=== PATIENT | female | born 1935 | race Caucasian/White ===

== ENCOUNTER 2017-04-21 17:26 | Observation (INO) | payer MEDICARE, BC ==
--- NOTE | ~2017-04-21 | HP ---
History And Physical [place] [address] [facility] [place] [place]. [address] NAME: MAREK YEBOAH : 31 STATUS : ADM Janes PAT#: [id number] AGE: 81 ADM/REG DATE : 04/21/17 MR#: [id number] REPORT SERV DATE: 04/22/17 DICTATED BY: MEMO NORWOOD DATE: 04/22/17 REPORT STATUS : Draft TRANSCRIBED BY: MODAbdulkadir DATE: 04/22/17 DATE OF ADMISSION: 04/21/2017 CHIEF COMPLAINT: Chest pain with typical and atypical features. HISTORY OF PRESENT ILLNESS: A very pleasant 81-year-old white female with no known history of CAD, states that on 04/21/2017, around 0730 hours, she became dizzy after gardening. She states that she came in and worked on her computer for a period of time, seemingly became more dizzy with the development of some chest pain. She also became nauseous and had some episodes of vomiting. She describes the chest pain as substernal in nature, as if weight was on her chest. She also had discomfort from shoulder to shoulder, described as a "needly sensation". She also feels that her left arm went numb. She describes associated shortness of breath, nausea, diaphoresis, dizziness, and belching. She radioed her to come in and upsets when she saw him, she states that his "lips" were blue, which upset her, she became emotional which seemed to add to her symptoms. At its most intense, she rated the chest pain as 5/10. At the time of interview in the [facility], she is pain-free. She states the episode lasted hours in duration. Of note, she and her had pancakes, her parents brought a banana for breakfast. The patient confirms a personal history of TIA x3. Denies history of AL, DVT, or pulmonary embolus. The patient denies any recent fever or chills. Describes occasional palpitations. Does not consume any caffeinated beverages. No syncopal episodes. Denies PND or orthopnea. PAST MEDICAL HISTORY: 1. Hypertension. 2. Dyslipidemia. 3. AODM. 4. GERD. 5. History of TIA x3 with right-sided visual disturbance. 6. Positive family history for early CAD. PAST SURGICAL HISTORY: 1. Hysterectomy. 2. Salivary gland removed. 3. Parotid gland. 4. Bilateral total knee surgery. 5. Right shoulder surgery. 6. Lumbar surgery x3. 7. Bilateral cataract repair. SOCIAL HISTORY: She is with four children. Previously employed in an office. She is active around her property including gardening. Denies tobacco, alcohol, or illicits, although she was exposed to secondhand smoke as a child. FAMILY HISTORY: Mother with a stroke in her 50s and a history of "angina", at 86. Sister with a heart attack and stroke, in her 70s. History And Physical [address] [address] [facility] [place]. [address] NAME: MAREK YEBOAH : 31 STATUS : ADM Janes PAT#: [id number] AGE: 81 ADM/REG DATE : 04/21/17 MR#: [id number] REPORT SERV DATE: 04/22/17 DICTATED BY: MEMO NORWOOD DATE: 04/22/17 REPORT STATUS : Draft TRANSCRIBED BY: AB DATE: 04/22/17 REVIEW OF SYSTEMS: A 14-point review of systems performed, significant for HPI. No other contributory diagnoses identified. ALLERGIES: TO SULFA, NAUSEA, VOMITING. CODEINE, NAUSEA, VOMITING. HOME MEDICATIONS: Ventolin inhaler p.r.n., aspirin 81 mg daily, Flonase spray twice daily, Neurontin 300 mg daily and 600 at bedtime, losartan 50 mg at noon, metformin 500 mg three times daily, pantoprazole 40 mg nightly, pravastatin 80 mg nightly, ranitidine 300 mg nightly, and calcium 200 mg at noon, Excedrin PM nightly. PHYSICAL EXAMINATION: VITAL SIGNS: Bilateral blood pressures on arrival, right 136/63 and left 132/62, orthostatics lying 154/71, sitting 141/66, standing 134/62. Pulse 66, respirations 19, temperature 98.2, O2 saturation 93% on room air. Height 5 feet 1 inch, weight 160 pounds. BMI of 30. GENERAL: Cooperative, in no apparent distress. HEENT: Pupils 2 mm, sclera nonicteric. Nares patent. Moist mucous membranes. No xanthelasma. NECK: Trachea midline, no thyromegaly. No JVD. No bruits. CHEST: Tender to palpation, right chest, left chest. LYMPH: No cervical lymphadenopathy. No supraclavicular lymphadenopathy. RESPIRATORY: Unlabored respirations. Breath sounds clear bilaterally to posterior auscultation. No wheezes or rhonchi. CARDIOVASCULAR: Regular rate. No murmur, rub or gallop appreciated. EXTREMITIES: Without edema. Pulses 2+ bilaterally. ABDOMEN: Obese, soft, nontender, nondistended, normal bowel sounds auscultated throughout. No organomegaly. SKIN: Warm, dry extremities. No pallor, or cyanosis. PSYCHIATRIC: Appropriate affect. Alert, oriented x3. LABORATORY DATA: Troponin less than 0.02 twice. Potassium 4.3, BUN 19, creatinine 0.79, glucose 130, magnesium 1.7. WBC 8.3, hemoglobin of 11.9, hematocrit 37.5, platelet count 234,000. EKG, sinus rhythm. Echo 12/2007: EF 55%. MPI 2007: Brando stage 2, 5 minutes, 7 METS. No ischemia. ASSESSMENT AND PLAN: 1. Chest pain. The patient has been observed in the CPOU. Two sets of cardiac markers negative. EKG stable. The patient has been held n.p.o. We will proceed with MPI today, most likely vasodilators given chronic back pain and weakness. The patient will be discharged home if negative study. If anything suggestive of ischemia, Cardiology referral will be initiated. Otherwise, the patient will be asked to follow up with Dr. Forrest Luque, in one to two weeks with all studies being sent to that office. History And Physical [address] [address] NAME: MAREK YEBOAH ROBB : 31 STATUS : ADM Janes PAT#: [id number] AGE: 81 ADM/REG DATE : 04/21/17 MR#: [id number] REPORT SERV DATE: 04/22/17 DICTATED BY: MEMO NORWOOD DATE: 04/22/17 REPORT STATUS : Draft TRANSCRIBED BY: AB DATE: 04/22/17 2. Hypomagnesemia. We will replete per protocol. 3. Hypertension. Monitor blood pressure and resume home medications. 4. Adult-onset diabetes mellitus. Hold metformin level 1 sliding scale correction. 5. Dyslipidemia. Continue statin. CONSTANTINO/AB MISA Barba, SHLOMO / [id number] CC: MISA Barba, SHLOMO Luque M.D.
[2017-04-21 14:41] LABS: BASOPHILS 0.2 %; BASOPHILS ABSOLUTE 0.02 10/3/uL (0.0-0.16); EOSINOPHILS 0.6 %; EOSINOPHILS ABSOLUTE 0.05 10/3/uL (0.0-0.53); ER CBC TAT 0 Hrs 05 Mins; HEMATOCRIT 37.5 % (36.0-48.0); HEMOGLOBIN 11.9 g/dL (12.0-16.0); IMMATURE GRANULOCYTES 0.2 %; IMMATURE GRANULOCYTES ABSOLUTE 0.02 10/3/uL (0.0-0.11); LYMPHOCYTES 18.9 %; LYMPHOCYTES ABSOLUTE 1.57 10/3/uL (0.67-4.30); MEAN CORPUS HGB CONC 31.7 g/dL (32.0-36.0); MEAN CORPUSCULAR HEMOGLOB 29.4 pg (26.0-34.0); MEAN CORPUSCULAR VOLUME 92.6 fL (80-100); MEAN PLATELET VOLUME 9.7 fL (9.2-13.0); MONOCYTES 5.9 %; MONOCYTES ABSOLUTE 0.49 10/3/uL (0.21-1.20); NEUTROPHILS 74.2 %; NEUTROPHILS ABSOLUTE 6.17 10/3/uL (2.02-8.40); PLATELET COUNT 234 10/3/uL (150-400); RBC DISTRIBUTION WIDTH 14.8 % (12.0-16.0); RED CELL COUNT 4.05 10/6/uL (4.0-5.6); WHITE BLOOD CELLS 8.3 10/3/uL (4.5-10.5)
[2017-04-21 14:42] LABS: MANUAL DIFF NO %
[2017-04-21 14:48] LABS: PARTIAL THROMBO TIME 24.3 SEC (22.5-37.2)
[2017-04-21 14:52] LABS: PROTIME (NOT ORD) 12.9 SEC (12.0-14.5)
[2017-04-21 14:57] LABS: BUN (BLOOD UREA NITROGEN) 13 MG/DL (6-23); CALCIUM, SERUM 9.5 MG/DL (8.5-10.4); CHEST PAIN PROFILE TAT 0 Hrs 21 Mins; CHLORIDE, SERUM 106 MMOL/L (96-112); CO2 (CARBON DIOXIDE) 26 MMOL/L (24-34); CREATININE 0.79 MG/DL (0.55-1.02); GFR AFRICAN AMERICAN 80 ML/MIN (>=60); GFR NON AFRICAN AMERICAN 69 ML/MIN (>=60); GLUCOSE, SERUM 130 MG/DL (60-99); POTASSIUM, SERUM 4.3 MMOL/L (3.5-5.3); SODIUM, SERUM 140 MMOL/L (135-148); TROPONIN I <0.02 NG/ML (<0.05)
[~2017-04-21 17:26] MED LIST: ALTACE10 MG PO; ASAB PO; BREO ELLIPTA INH; CALTRA600D PO; COZ50 PO; DCN100 PO; DOX10 PO; FLONASE NAS; GLUCPH8 PO; JANUMET1 TAB PO; L20 PO; METHOC500B PO; NEUR100 PO; NEUR300 PO; PCET PO; PRAVACHOL80 MG PO; PRILO PO; PROTONIX PO; RANITIDINE300 MG PO; TYLENOL PM PO; VOLTAREN1 % TOP; ZANTAC 150 PO
[2017-04-21] MEDS ORDERED: HALF81 PO (17:36)
[2017-04-21] MEDS ORDERED: NEUR300 PO (17:38)
[2017-04-21] MEDS ORDERED: CALCIUM 200 MG PO (17:38)
[2017-04-21] MEDS ORDERED: NEUR600 PO (17:39)
[2017-04-21] MEDS ORDERED: COZ50 PO (17:40)
[2017-04-21] MEDS ORDERED: GLUCPH PO (17:41)
[2017-04-21] MEDS ORDERED: PROTONIX PO (17:41)
[2017-04-21] MEDS ORDERED: ZANTAC300 MG PO (17:42)
[2017-04-21] MEDS ORDERED: PRAVACHOL80 MG PO (17:42)
[2017-04-21] MEDS ORDERED: FLONASE NAS (17:43)
[2017-04-21] MEDS ORDERED: VENTOLIN HFA INH (17:43)
[2017-06-05] MEDS ORDERED: MEDS (13:12)
== END 2017-04-22 15:25 | disposition home or self-care (01) ==
LOC: ER 17:26 → CDU1 17:57 → CDU2 18:57
PROVIDERS: Emergency Medicine
DX: R07.9 Chest pain, unspecified (principal); E83.42 Hypomagnesemia; I10 Essential (primary) hypertension; E11.8 Type 2 diabetes mellitus with unspecified complications; E78.5 Hyperlipidemia, unspecified; K21.9 Gastro-esophageal reflux disease without esophagitis; Z86.73 Personal history of transient ischemic attack (TIA), and cerebral infarction without residual deficits; Z82.49 Family history of ischemic heart disease and other diseases of the circulatory system; Z90.710 Acquired absence of both cervix and uterus; Z98.41 Cataract extraction status, right eye; Z98.42 Cataract extraction status, left eye; Z98.890 Other specified postprocedural states; Z82.3 Family history of stroke; Z88.2 Allergy status to sulfonamides; Z88.5 Allergy status to narcotic agent; Z79.82 Long term (current) use of aspirin; Z79.899 Other long term (current) drug therapy; Z90.89 Acquired absence of other organs; Z96.653 Presence of artificial knee joint, bilateral; Z90.49 Acquired absence of other specified parts of digestive tract
CPT/HCPCS: 71020; 78452; 80048; 82962; 83735; 84484; 85025; 85610; 85730; 93005; 93017; 96374; 96375; 96376; 99285; A9270-GY; A9502; G0378; J0153; J0280; J2405